=== PATIENT | male | born 1975 | race Caucasian/White ===

== ENCOUNTER 2025-04-27 06:00 | Day surgery (SDC) | payer OTHER ==
[2025-04-22 12:55] VITALS: BP 127/85
[~2025-04-27] VITALS: Ht 177.8 cm; Wt 78.9 kg
[~2025-04-27 06:00] MED LIST: DICY20TA PO; PRILOSEC20 MG PO; PROTONIX40 MG PO; ZANTAC150 M3 PO
[2025-04-27] MEDS ORDERED: ISOPROPYL ALCOHOL 30 ML OUNCE TOP ONE (10:00)
[2025-04-27] MEDS ORDERED: BUPIVACAINE HCL 30 ML VIAL IJ ONE (10:00)
[2025-04-27] MEDS ORDERED: CEFAZOLIN SODIUM 1,000 MG VIAL IV SCH (10:00)
[2025-04-27] MEDS ORDERED: SUGAMMADEX SODIUM 200 MG/2 ML VIAL IV ONE (11:15)
== END 2025-04-27 13:05 | disposition home or self-care (01) ==
LOC: CIR.AMB 06:00
PROVIDERS: ATTEND Orthopaedic Surgery Hand Surgery
DX: M18.11 Unilateral primary osteoarthritis of first carpometacarpal joint, right hand (principal); M19.041 Primary osteoarthritis, right hand
CPT/HCPCS: 25210; 26135; 26568; L8699